=== PATIENT | male | born 1965 | race Caucasian/White ===

== ENCOUNTER 2018-05-03 09:17 | Day surgery (SDC) | payer SELFPAY ==
[2018-05-03 09:42] LABS: PLATELET COUNT 230 10^3/uL (150-400)
[2018-05-03] MEDS ORDERED: ASPIRIN 81 MG CHEWABLE TAB ONE (09:42)
[2018-05-03] MEDS ORDERED: ASPIRIN 81 MG CHEWABLE TAB PO ONE (09:42)
--- NOTE | 2018-05-03 09:44 | EDPHY ---
H & P Stated Complaint: CP Time Seen by Provider: 05/03/18 09:25 - Medical/Surgical History Hx Asthma: No Hx Chronic Respiratory Disease: No Hx Diabetes: No Hx Cardiac Disease: No Hx Renal Disease: No Hx Cirrhosis: No Hx Alcoholism: No Hx HIV/AIDS: No Hx Splenectomy or Spleen Trauma: No Other PMH: HTN - Social History Smoking Status: Never smoked Constitutional: Initial Vital Signs Temperature (C) 36.4 C 05/03/18 09:20 Heart Rate 84 05/03/18 09:20 Respiratory Rate 18 05/03/18 09:20 Blood Pressure 166/128 H 05/03/18 09:20 O2 Sat (%) 96 05/03/18 09:20 O2 Delivery Mode Room Air Allergies/Adverse Reactions: No Known Allergies Allergy (Unverified 05/03/18 09:19) Home Medications: Medication Instructions Recorded Amlodipine Besylate 05/03/18 Lisinopril 05/03/18 Medical Decision Making - Diagnostics Imaging Results: Imaging Impressions Chest X-Ray 05/03/18 09:35 Impression: Mild hyperaeration without acute cardiopulmonary process. Imaging: I viewed and interpreted images myself ED Course/Re-evaluation: CHIEF COMPLAINT: Chest pain HISTORY OF PRESENT ILLNESS: The patient is a 53 y/o male with a history of hypertension who arrives at the recommendation of his PCP due to two episodes of exertional chest pressure and tightness over the last few weeks. Three weeks ago he was snowboarding at [place] and developed significant chest pressure. He rested for 5-10 minutes and symptoms resolved and he went home. He' s felt at baseline since then until yesterday when he went to [place] to snowboard again. He went down the first run and immediately developed the same chest pressure and tightness, though more severe than the prior episode. It was associated with some difficulty breathing and lightheadedness. He rested for 10- 15 minutes and symptoms improved. He then decided to return home and called his PCP this morning for evaluation of these symptoms. He was then referred to the ED. Apart from hypertension he is generally healthy with normal cholesterol and a very active lifestyle. He denies smoking, diabetes, or known family history of cardiac disease, though he is adopted and has limited access to this information. No nausea, vomiting, cough, fever, abdominal pain. He is asymptomatic currently. REVIEW OF SYSTEMS: A comprehensive 10 system review of systems is otherwise negative aside from elements mentioned in the history of present illness and medical decision making. PHYSICAL EXAM: HR, BP, O2 Sat, RR. Temp noted General Appearance: Alert, well hydrated, appropriate, and non-toxic appearing. Head: Atraumatic without scalp tenderness or obvious injury Eyes: Pupils equal, round, reactive to light and accommodation, EOMI, no trauma , no injection. Nose: Atraumatic, no rhinorrhea, clear. Throat: There is no erythema or exudates, no lesions, normal tonsils, mucus membranes moist. Neck: Supple, non-tender, no lymphadenopathy. Respiratory: No retractions, no distress, no wheezes, and no accessory muscle use. Lungs are clear to auscultation bilaterally. Cardiovascular: Regular rate and rhythm, no murmurs, rubs, or gallops. Good capillary refill all extremities. Gastrointestinal: Abdomen is soft, non-tender, non-distended, no masses, no rebound, no guarding, no peritoneal signs. Musculoskeletal: Normal active ROM of all extremities, atraumatic. Neurological: Alert, appropriate, and interactive. The patient has non-focal cranial nerves, motor, sensory, and cerebellar exam. Skin: No rashes, good turgor, no nodules on palpation. PAST MEDICAL HISTORY: Hypertension - Lisinopril, amlodipine PAST SURGICAL HISTORY: Noncontributory FAMILY HISTORY: Adopted, knows of hypertension in mother SOCIAL HISTORY: Active backpacker and snowboarder. Originally from [facility]. PCP: Dr. Amanda Gurrola. DIAGNOSTICS/PROCEDURES/CRITICAL CARE TIME: The 12 lead EKG was interpreted by myself. Sinus mechanism. T wave inversion inferior leads. No prior EKGs available. See hard copy and/or "tracemaster" electronic copy for interpretation. DIFFERENTIAL DIAGNOSIS: The differential diagnosis for the patient's chest pain included but was not limited to myocardial ischemia, pulmonary embolus, chest wall pain, pleural inflammation, and pulmonary infectious causes. MEDICAL DECISION MAKING: This is a 53 y/o male with history of hypertension who presents after two episodes of exertional chest pressure over the last 3 weeks, most recently yesterday while snowboarding. His story is concerning for ACS related to exertion and he has essentially been failing his own stress tests. Exam is unremarkable. Plan for cardiac work up including IV, labs, EKG, chest x-ray, and 324mg PO aspirin. EKG shows inferior T wave inversions. No prior EKG available to compare. POC Troponin 0.00. 0957: Consulted with Dr. Galarza, cardiology. He will assess patient in the ED. LEAH Zapata from [facility] assessed patient in the ED and recommends taking patient to collaborative teacher. Patient will taken directly to the collaborative teacher. - Data Points Laboratory Results: Laboratory Results 05/03/18 09:35 05/03/18 09:35 05/03/18 05/03/18 05/03/18 09:36 09:35 09:35 WBC 6.82 10^3/uL 10^3/uL (3.80-9.50) RBC 5.20 10^6/uL 10^6/uL (4.40-6.38) Hgb 17.0 g/dL g/dL (13.7-17.5) Hct 47.1 % % (40.0-51.0) MCV 90.6 fL fL (81.5-99.8) MCH 32.7 pg pg (27.9-34.1) MCHC 36.1 g/dL g/dL (32.4-36.7) RDW 12.1 % % (11.5-15.2) Plt Count 230 10^3/uL 10^3/uL (150-400) MPV 10.2 fL fL (8.7-11.7) Neut % (Auto) 55.6 % % (39.3-74.2) Lymph % (Auto) 33.4 % % (15.0-45.0) [place] % (Auto) 7.5 % % (4.5-13.0) Eos % (Auto) 2.8 % % (0.6-7.6) Baso % (Auto) 0.3 % % (0.3-1.7) Nucleat RBC Rel Count 0.0 % % (0.0-0.2) Absolute Neuts (auto) 3.79 10^3/uL 10^3/uL (1.70-6.50) Absolute Lymphs (auto) 2.28 10^3/uL 10^3/uL (1.00-3.00) Absolute Monos (auto) 0.51 10^3/uL 10^3/uL (0.30-0.80) Absolute Eos (auto) 0.19 10^3/uL 10^3/uL (0.03-0.40) Absolute Basos (auto) 0.02 10^3/uL 10^3/uL (0.02-0.10) Absolute Nucleated RBC 0.00 10^3/uL 10^3/uL (0-0.01) Immature Gran % 0.4 % % (0.0-1.1) Immature Gran # 0.03 10^3/uL 10^3/uL (0.00-0.10) PT INR APTT Sodium 141 mEq/L mEq/L (135-145) Potassium 4.2 mEq/L mEq/L (3.5-5.2) Chloride 108 mEq/L mEq/L (97-110) Carbon Dioxide 24 mEq/l mEq/l (22-31) Anion Gap 9 mEq/L mEq/L (6-14) BUN 15 mg/dL mg/dL (7-23) Creatinine 0.8 mg/dL mg/dL (0.7-1.3) Estimated GFR > 60 Glucose 112 mg/dL H mg/dL (70-100) Calcium 9.5 mg/dL mg/dL (8.5-10.4) Magnesium POC Troponin I 0.01 ng/mL ng/mL (0.00-0.08) NT-Pro-B Natriuret Pep 31 pg/mL pg/mL (0-125) Triglycerides Cholesterol Cholesterol Risk Factr LDL Cholesterol, Calc LDL Risk Factor VLDL Cholesterol Non-HDL Cholesterol HDL Cholesterol LDL/HDL Ratio Cholesterol/HDL Ratio 05/03/18 05/03/18 09:15 09:15 WBC RBC Hgb Hct MCV MCH MCHC RDW Plt Count MPV Neut % (Auto) Lymph % (Auto) [place] % (Auto) Eos % (Auto) Baso % (Auto) Nucleat RBC Rel Count Absolute Neuts (auto) Absolute Lymphs (auto) Absolute Monos (auto) Absolute Eos (auto) Absolute Basos (auto) Absolute Nucleated RBC Immature Gran % Immature Gran # PT 13.2 SEC SEC (12.0-15.0) INR 0.98 (0.83-1.16) APTT 31.3 SEC SEC (23.0-38.0) Sodium Potassium Chloride Carbon Dioxide Anion Gap BUN Creatinine Estimated GFR Glucose Calcium Magnesium 1.9 mg/dL mg/dL (1.6-2.3) POC Troponin I NT-Pro-B Natriuret Pep Triglycerides 123 mg/dL mg/dL (40-150) Cholesterol 222 mg/dL H mg/dL (140-220) Cholesterol Risk Factr 1.4 H (0.2-1.0) LDL Cholesterol, Calc 158 mg/dL H mg/dL (80-100) LDL Risk Factor 1.2 H (0.2-1.0) VLDL Cholesterol 25 mg/dL mg/dL (8-25) Non-HDL Cholesterol 183 mg/dL H mg/dL (90-129) HDL Cholesterol 39 mg/dL L mg/dL (40-65) LDL/HDL Ratio 4.06 RATIO H RATIO (1.00-3.64) Cholesterol/HDL Ratio 5.69 RATIO H RATIO (1.00-4.97) Medications Given: Discontinued Medications Aspirin (Aspirin) 324 mg PO EDNOW ONE Stop: 05/03/18 09:43 Last Admin: 05/03/18 09:43 Dose: 324 mg Diazepam (Valium) 5 mg PO ONCALL ONE Stop: 05/03/18 11:01 Last Admin: 05/03/18 11:26 Dose: 5 mg Diphenhydramine HCl (Benadryl) 25 mg PO ONCALL ONE Stop: 05/03/18 11:01 Last Admin: 05/03/18 11:26 Dose: 25 mg Famotidine (Pepcid) 20 mg PO ONCALL ONE Stop: 05/03/18 11:01 Last Admin: 05/03/18 11:26 Dose: 20 mg Point of Care Test Results: Chemistry 05/03/18 09:36 POC Troponin I 0.01 ng/mL ng/mL (0.00-0.08) Departure - Departure Disposition: [facility] In[facility] Acute Clinical Impression: Acute coronary syndrome Condition: Fair Referrals: Amanda Gurrola MD [Primary Care Provider] - As per Instructions Report Scribed for: Mitch Guillen Report Scribed by: Tuyet Kruse Date of Report: 05/03/18 Time of Report: 09:58
[2018-05-03 10:45] VITALS: BP 180/117
[2018-05-03] MEDS ORDERED: TEMAZEPAM 15 MG CAP PO PRN (11:00)
[2018-05-03] MEDS ORDERED: diphenhydrAMINE 25 MG CAP PO ONE (11:00)
[2018-05-03] MEDS ORDERED: DIAZEPAM 5 MG TAB PO ONE (11:00)
[2018-05-03] MEDS ORDERED: FAMOTIDINE 20 MG TAB PO ONE (11:00)
[2018-05-03] MEDS ORDERED: NITROGLYCERIN 0.4 MG BTL SL PRN (11:00)
[2018-05-03] MEDS ORDERED: NS 1,000 ML IV SCH (11:00)
[2018-05-03] MEDS ORDERED: ACETAMINOPHEN 325 MG TAB PO PRN (11:00)
[2018-05-03 11:18] LABS: INR 0.98 (0.83-1.16); PROTIME(PATIENT) 13.2 SEC (12.0-15.0)
[2018-05-03] MEDS ORDERED: fentaNYL 100 MCG/2 ML INJ ONE (11:24)
[2018-05-03] MEDS ORDERED: LIDOCAINE 1% 300 MG/30 ML SDV ONE (11:24)
[2018-05-03] MEDS ORDERED: IOPAMIDOL (ISOVUE-370) 150 ML BTL IV ONE (11:24)
[2018-05-03] MEDS ORDERED: MIDAZOLAM 2 MG/2 ML VIAL ONE (11:24)
--- NOTE | 2018-05-03 11:24 | GCON ---
CARDIOLOGY CONSULTATION REFERRING PHYSICIAN: Mitch Guillen MD INDICATION FOR CARDIOLOGY CONSULTATION: Exertional chest pressure, abnormal electrocardiogram. HISTORY OF PRESENT ILLNESS: Mr. Mead is a 53-year-old male who reports a significant past history of hypertension. He reports approximately 2 weeks ago , when he was small boarding in [place], he was fairly aggressive, he did develop a midsternal chest pressure, reporting some mild shortness of breath and mild nausea, he stopped, rested for approximately 10 minutes, and symptoms subsided. He did report he continued to go for the rest of the day, but did experience a similar symptom during the day, requiring him to stop again. Initially, he had thought this was due to him being out of shape, and smoking and occasionally using marijuana, he states that he quit using marijuana, and had been doing fine, until yesterday, when he was up at [place], he did his initial run, and develop similar symptoms, stating he rested for approximately 10-15 minutes, and symptoms subsided. He came home, after his initial run, and rested for the remainder of the day. He did call his PCP's office this morning , in which he was told to come to the emergency department for further evaluation. Upon arrival, he is currently chest pain free. He did have an electrocardiogram done, which noted sinus rhythm with inverted T-waves in inferior leads. He informs me besides these episodes of chest pain, he has been in his normal state of health. He reports no fevers, chills, or night sweats. Denies any orthopnea, PND, edema, palpitations, lightheadedness, near- syncope, or syncopal events. Reporting no symptoms suggestive of TIA or CVA. Patient has significant cardiac risk factors that include his sex is male, previous smoker, and long-term history of hypertension. PAST MEDICAL HISTORY: Patient states significant past history of hypertension, in which he has been started on medication management of amlodipine and lisinopril. PAST SURGICAL HISTORY: Patient denies any significant surgical history. FAMILY HISTORY: Patient reports he is adopted, but he has met his mother , which she had told him the only significant family history on her side was hypertension. She also informed patient she really did not think his father had any significant family history. 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 He is single, he has 2 adult children who are alive and well. He is a previous smoker, quitting approximately 10-15 years ago. He denies any alcohol use, he does report he had recently been using recreational marijuana, in which he reported discontinuing over 2 weeks ago. He does report he drinks 2-3 cups of coffee on a daily basis. ALLERGIES: He has no known drug allergies. HOME MEDICATIONS: Include lisinopril 20 mg p.o. daily, amlodipine 5 mg p.o. daily. REVIEW OF SYSTEMS: 10-point review of systems done on patient. All negative except as mentioned above. PHYSICAL EXAMINATION: GENERAL APPEARANCE: Medium built, mildly obese, male. He is alert and oriented to person, place, time, and situation. Appears to be under no acute distress at this time. VITAL SIGNS: Current vital signs are blood pressure of 166/128, heart rate 84, respirations 18, saturating 96% on room air. Temperature 36.4 degrees Celsius. HEENT: Head is normocephalic. Lips and tongue are pink and moist with no signs of cyanosis. Conjunctivae pink. NECK: Trachea is midline. +2 carotid pulses bilateral. No auscultated bruits. No jugular vein distention. RESPIRATORY: Lungs are clear to auscultation. No rhonchi, rales or wheezes. No accessory muscle use, no intercostal muscle retraction noted. CARDIAC: Regular rate, regular rhythm. S1, S2, no S3, S4, gallops, rubs, or murmurs noted. ABDOMEN: Soft, nontender, bowel sounds x4 quadrants. No organomegaly. No palpable masses. SKIN: [place], warm, dry. No cyanosis, no clubbing, no peripheral edema. VASCULAR: +2 carotids bilateral, + 2 radials bilateral, +2 dorsal pedal and posterior tibial pulses bilateral. LABORATORY STUDIES: Drawn today show WBC of 6.82, hemoglobin 17.0, hematocrit of 47.1, platelet count of 230. Sodium 141, potassium 4.2, chloride 108, CO2 24 , BUN 15, creatinine 0.8, glucose 112, calcium 9.5. Troponin of 0.01. ProBNP of 31. STUDIES: Electrocardiogram as mentioned above. Chest x-ray showing mild hyperaeration without acute cardiopulmonary process. ASSESSMENT AND PLAN: 1. Chest pressure: Patient reporting episodes of exertional chest pressure over the last 2 weeks. Last episode last evening, usually dissipates in 5-10 minutes. This would be equivocal to CCS class 2-3 symptoms. He is noted to have an abnormal electrocardiogram on admission. Negative troponin levels. After discussing with Dr. Galarza, concerning about potential acute coronary syndrome, with recurring chest pressure. Recommendation of further evaluation of undergoing coronary angiogram for further evaluation of cardiac ischemia. Risks and benefits of this procedure were discussed with the patient. He verbalizes understanding. He would like to make phone calls and discuss with his family, and will make a decision in the next 10-15 minutes to decide if he would like to proceed or not. We will continue to monitor. He was already given aspirin therapy. 2. Hypertension: Patient's blood pressure is elevated. Depending on coronary angiogram, we will make further medication adjustments as needed. Thank you for this consultation. /[id number]/MODL MTDD
[2018-05-03] MEDS ORDERED: hydrALAZINE 20 MG/ML VIAL ONE (12:16)
--- NOTE | 2018-05-03 12:21 | PDHPUP ---
History & Physical Update H&P update statement: This history and physical update is based on an assessment of the patient which was completed after admission or registration (within 24 hours), but prior to the surgery/procedure. Reviewed H&P reviewed. 53 yo with exertional chest tightness and sob. Hx of HTN and remote hx of smoking H&P update: H&P reviewed & patient examined, no change in patient's condition since H&P completed
--- NOTE | 2018-05-03 12:22 | PDPROPOC ---
Sedation Plan of Care Sedation Plan of Care: vital signs stable, mental status noted, patient educated of risks, benefits, alternatives, patient can tolerate sedation ASA Classification: ASA 2 Planned drugs: fentanyl, midazolam Mallampati Score: Class 2 Mallampati Reference Image: Patient passed 3-3-2 rule?: Yes
[2018-05-03] MEDS ORDERED: ONDANSETRON 4 MG/2 ML VIAL IVP PRN (13:29)
[2018-05-03] MEDS ORDERED: ATROPINE SULFATE 1 MG/10 ML SYR IVP PRN (13:29)
--- NOTE | 2018-05-03 13:50 | CPIP ---
DATE OF PROCEDURE: 05/03/2018 PROCEDURE PERFORMED: Left heart catheterization. INDICATION FOR PROCEDURE: This patient is a pleasant 53-year-old gentleman with a history of hyperte nsion, remote history of smoking, who presented to [facility] Emergency Department wi th complaints of exertional substernal chest tightness and shortness of breath. He had an episode in itially 2 weeks ago with snowboarding at [employer]. He had a similar episode of substernal chest t ightness and shortness of breath that stopped him after his 1st run at [employer] yesterday. He contacte d his primary care physician's office who recommended he present to the emergency room for further ev aluation. He does have a history of hypertension and a remote history of smoking. Baseline ECG demo nstrates T-wave inversions in leads III and aVF. In the setting of exertional chest tightness and shortness of breath, EKG changes, remote smoking his tory, and lipid profile with LDL of 158, decision was made to pursue diagnostic left heart catheteriz [facility]. PROCEDURE: After informed consent was obtained for left heart catheterization and percutaneous coron sarah intervention, patient was brought to the cardiac catheterization lab where he was prepped and eriberto ped in sterile fashion. Using modified Seldinger technique and micropuncture technique, 6-Yoruba she ath was placed in the right common femoral artery without complications. A JL4 catheter was used to take images of the left coronary anatomy in multiple projections. The JL4 catheter was exchanged ove r a guidewire for a JR4 catheter. JR4 catheter was used to take images of the left coronary anatomy in multiple projections. The JR4 catheter was exchanged over a guidewire for angled pigtail catheter . Angled pigtail catheter was used to cross the aortic valve. Left ventriculogram was performed. L VEDP was assessed. Aortic valve gradient on pullback was assessed. Angled pigtail catheter was beatris vickie over a guidewire without complications. Angiography of the right common femoral artery demonstra sachin appropriate placement of 6-Yoruba sheath below the inguinal ligament above the bifurcation of the right common femoral artery. Angio-Seal was deployed successfully without complication. FINDINGS: 1. Left main: Normal size and caliber, bifurcates into left anterior descending and left circumflex coronary artery. There is no evidence of coronary disease within the left main. 2. Left anterior descending artery reaches and crosses the LV apex. There are mild luminal irregula rities in the midportion of the LAD. There is a small 1st and moderate-sized diagonal branch. There are mild luminal irregularities in the 2nd moderate-sized diagonal branch. 3. Circumflex vessel is a large caliber, dominant vessel with a large 1st obtuse marginal branch. T here is no evidence of coronary disease within the circumflex system. 4. The right coronary artery is a large caliber, nondominant vessel. There are some mild luminal ir regularities of up to 10% in the proximal portion of the right coronary artery. There is no evidence of flow-limiting coronary disease. HEMODYNAMICS: LVEF 60% to 65%. LVEDP is elevated at 27 mmHg. Aortic valve gradient none. CONCLUSIONS: 1. Mild luminal irregularities with no evidence of flow-limiting coronary disease within the LAD and right coronary artery. 2. Normal left ventricular function. 3. Elevated LVEDP of 27 mmHg, which is most likely secondary to suboptimally controlled hypertension and most likely responsible for his symptoms. PLAN: 1. Patient will recover in CVC. 2. Plan for discharge home. 3. Plan for improved blood pressure control. /[id number]/MODL
--- NOTE | 2018-05-03 14:32 | CPEKG ---
Test Reason : OPEN Blood Pressure : / mmHG Vent. Rate : 075 BPM Atrial Rate : 077 BPM P-R Int : 141 ms QRS Dur : 086 ms QT Int : 386 ms P-R-T Axes : 048 023 -20 degrees QTc Int : 432 ms Sinus rhythm Probable left atrial enlargement Borderline T abnormalities, inferior leads Confirmed by Mitch Guillen ([id number]) on 05/03/2018 2:31:57 PM Referred By: Confirmed By:Mitch Guillen
[2018-05-04] MEDS ORDERED: amLODIPine BESYLATE 5 MG TAB PO SCH (09:00)
[2018-05-04] MEDS ORDERED: LISINOPRIL 20 MG TAB PO SCH (09:00)
== END 2018-05-03 18:29 | disposition home or self-care (01) ==
LOC: FCATH 11:05
PROVIDERS: ATTEND Internal Medicine Cardiovascular Disease
DX: I24.9 Acute ischemic heart disease, unspecified (principal); I10 Essential (primary) hypertension; Z87.891 Personal history of nicotine dependence
CPT/HCPCS: 84484-ER; C1760; J0360; J0461; J1644; J2250; J2405; J3010; Q9967